=== PATIENT | male | born 1990 ===

== ENCOUNTER 2025-03-07 11:35 | Outpatient (AMB) | payer BC, MEDICAID, SELFPAY ==
--- NOTE | 2025-03-07 12:06 | MHC.OFFVIS ---
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 He was doing ok, no new issues. He has lost some weight. 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 Facial expression blinking were diminished. He was able to walk without assistance. Assessment & Plan Assessment & Plan (1) Seizure disorder: Comment: [place] [facility] [place]: mild bifrontal atrophy MRI brain [place] [facility] [place] cont in [place]: mild bifrontal atrophy CT brain [place] [facility] [place] in 2010: mild bifrontal atrophy. 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 Frontal lobe syndrome: At this time there was no active issues and medicines were providing coverage for most of the symptoms. As far as is sleep issue is concerned, I would suggest lead him sleep whenever he likes to as using a medicine to adjust his sleep might not work Medications: New topiramate 200 mg PO BID 180 tabs 1RF Coding Level of Care Code Est Pt Level 4 (01572) Diagnoses Seizure disorder G40.909 Frontal lobe syndrome F07.0
--- OUTSIDE RECORDS SUMMARY | 2025-03-07 12:29 | XMS_ITS | Clinical Summary ---
Author Organization [facility] Address [address] [place] [address] Care Team Providers Care Pig Handler Name Role Phone Ayush Zazueta MD Primary Care Provider [phone] Allergies No known active allergies Medications Medication Sig Dispensed Refills Start Date End Date Status Melatonin 10 MG TABS Take 1 tablet by mouth every night at bedtime as needed. 0 Active guaiFENesin (ROBITUSSIN) 100 MG/5ML SOLN oral solution Take 5 mL by mouth every 6 (six) hours as needed. 0 Active Acetaminophen Extra Strength 500 MG TABS Take 1 tablet by mouth every 6 (six) hours as needed (headache, fever). 0 Active QUEtiapine (SEROquel) 100 MG tablet Take 1 tablet (100 mg total) by mouth daily. 0 Active topiramate (TOPAMAX) 200 MG tablet Take 1 tablet (200 mg total) by mouth 2 (two) times a day. 0 Active risperiDONE (RisperDAL) 4 MG tablet Take 1 tablet (4 mg total) by mouth 3 (three) times a day. 0 Active traZODone (DESYREL) 100 MG tablet Take 1 tablet (100 mg total) by mouth every night at bedtime. 0 Active LORazepam (ATIVAN) 1 MG tablet Take 1 tablet (1 mg total) by mouth every 6 (six) hours as needed. 0 Active LORazepam (ATIVAN) 0.5 MG tablet Take 1 tablet (0.5 mg total) by mouth every 6 (six) hours as needed. 0 Active Social History Tobacco Use Types Packs/Day Years Used Date Smoking Tobacco: Never Smokeless Tobacco: Never Tobacco Cessation:Counseling Given: Not Answered Alcohol Use Standard Drinks/Week Comments Never 0 (1 standard drink = 0.6 oz pur e alcohol) Sex and Gender Information Value Date Recorded Sex Assigned at Not on file Gender Identity Not on file Sexual Orientation Not on file Job Start Date Occupation Industry Not on file Not on file Not on file Last Filed Vital Signs Vital Sign Reading Time Taken Comments Blood Pressure - - Pulse 81 09/17/2023 11:27 AM EST Temperature 36.9 C (98.4 F) 09/17/2023 11:27 AM EST Respiratory Rate - - Oxygen Saturation 100% 09/17/2023 11: 27 AM EST Inhaled Oxygen Concentration - - Weight 107.3 kg (236 lb 9.6 oz) 024 11:27 AM EST Height - - Body Mass Index - - Plan of Treatment Health Maintenance Due Date Last Done Comments Hepatitis B Vaccines (1 of 3 - 3-dose series) 1990 Hepatitis C Screening 1990 COVID-19 Vaccine (#1) 06/30/1991 Depression Screening 2002 Preventative Health Evaluation 2008 DTap / Tdap / Td (2 - Td or Tdap) 12/28/2024 015 Influenza Vaccine (Season Ended) 2025 Pneumococcal Vaccine Aged Out No long er eligible based on patient's age to complete this topic RSV Ped < 20 months Aged Out No longe r eligible based on patient's age to complete this topic Care Teams Pig Handler Relationship Specialty Start Date End Date Ayush Zazueta MD PCP - General Internal Medicine 06/13/23
--- OUTSIDE RECORDS SUMMARY | 2025-03-07 12:29 | XMS_ITS | Clinical Summary ---
Author Organization [address] Building Address [address] [place] [phone] Phone Care Team Providers Care Instruction Librarian Name Role Phone Ayush Zazueta MD Primary Care Provider [phone] Allergies No known active allergies Medications guaiFENesin (ROBITUSSIN) 100 mg/5 mL liquid Take 5 mL (100 mg total) by mouth. 4 Active acetaminophen (TYLENOL) 500 mg tablet Take 1 tablet (500 mg total) by mouth. 4 Active LORazepam (ATIVAN) 0.5 mg tablet Take 1 tablet (0.5 mg total) by mouth every 6 hours as needed. Active LORazepam (ATIVAN) 1 mg tablet Take 1 tablet (1 mg total) by mouth 2 (two) times a day if needed for anxiety. Active topiramate (TOPAMAX) 200 mg tablet Take 1 tablet (200 mg total) by mouth 2 (two) times a day. Active risperiDONE (RisperDAL) 4 mg tablet Take 1 tablet (4 mg total) by mouth 3 (three) times a day. Active melatonin 5 mg tablet Take 3 tablets (15 mg total) by mouth at bedtime. Active risperiDONE (RisperDAL) 1 mg tablet Take 1 tablet (1 mg total) by mouth 2 (two) times a day. Active QUEtiapine (SEROquel) 400 mg tablet Take 1 tablet (400 mg total) by mouth at bedtime. Active traZODone (DESYREL) 100 mg tablet Take 2 tablets (200 mg total) by mouth at bedtime. Active ammonium lactate (AmLactin) 12 % lotion Apply topically 2 (two) times a day. Affected area specifically around the plantar heels and forefoot. Use in the a.m. and p.m. 400 g 2 5 12/15/19 Active ammonium lactate (AmLactin) 12 % lotion Apply topically if needed for dry skin. 400 g 2 5 02/10/20 Active Active Problems Problem Noted Date Diagnosed Date Acute cough 05/13/2024 Arthralgia 05/13/2024 Cerebral palsy [place] [place] [facility] [place]28[place] 2011 Development delay 12/26/2011 Frontal lobe dementia ([facility] [place], [facility] V28) 12/26/2011 Seizure ([facility] [place], [facility] [place]28) 12/26/2011 Overview (08/24/2024): Dr olson Encounters Date Type Department Care Team Description 02/24/2025 Telephone Internal Medicine - [address] [phone] Ayush Zazueta MD faxed order ([employer]) 02/09/2025 10:15 AM EDT Office Visit Orthopedic Surgery [facility] [address] [place] [phone] Paras Gomez DPM Pain in both feet (Primary Dx); Metatarsalgia of right foot; Callus of heel 02/09/2025 Telephone Orthopedic Surgery [facility] [address] [phone] Paras Gomez DPM 01/14/2025 11:30 AM EDT Office Visit Internal Medicine - [address] [phone] Ayush Zazueta MD Adult general medical examination (Primary Dx); Screening for deficiency anemia; Screening for hyperlipidemia; Screening for diabetes mellitus; Screening for thyroid disorder; Immunization due 12/30/2024 11:00 AM EDT Procedure visit Orthopedic Surgery [facility] [address] [phone] Paras Gomez DPM Cellulitis of left foot (Primary Dx); Cellulitis of right foot; Ingrown toenail 12/30/2024 Telephone Internal Medicine - [address] [phone] Ayush Zazueta MD information needed/referral,angélica rs 12/30/2024 Telephone Orthopedic Surgery [place] [phone] [phone] Paras Gomez DPM 12/14/2024 2:30 PM EDT Consult Orthopedic Surgery [place] [phone] [phone] Paras Gomez DPM Equinus contracture of left ankle (Primary Dx); Metatarsalgia of right foot; Callus of heel; Ingrown toenail from Last 3 Months Immunizations Name Administration Dates Next Due PPD Test 08/28/2015 Tdap Tetanus diptheria acell ular pertussis (Boostrix; Adacel) 7yo and older 01/14/2025,12/28/2014 Surgical History Surgery Date Site/Laterality Comments OTHER SURGICAL HISTORY PROCEDURE: DENIES PREVIOUS SURGERY Family History Medical History Relation Name Comments Diabetes Father Hypertension Father Other: hyperlipidemia Father Coronary artery disease Mother Heart attack Mother Relation Name Status Comments Brother Alive Father Alive Mother Alive Social History Tobacco Use Types Packs/Day Years Used Date Smoking Tobacco: Never Smokeless Tobacco: Never Tobacco Cessation:Counseling Given: Not Answered Alcohol Use Standard Drinks/Week Comments No 0 (1 standard drink = 0.6 oz pur e alcohol) Sex and Gender Information Value Date Recorded Sex Assigned at Not on file Legal Sex Male 11:34 AM EST Gender Identity Not on file Sexual Orientation Not on file Obstetrics History Last Filed Vital Signs Vital Sign Reading Time Taken Comments Blood Pressure 126/83 01/14/2025 10:55 AM EDT Pulse 77 01/14/2025 10:55 AM EDT Temperature - - Respiratory Rate - - Oxygen Saturation - - Inhaled Oxygen Concentration - - Weight 108 kg (237 lb) 02/09/2025 10:22 AM EDT Height 172.7 cm (5' 7.99 ) 02/09/2025 10:22 AM E DT Body Mass Index 36.04 02/09/2025 10:22 AM EDT Plan of Treatment Upcoming Encounters Date Type Department Care Team (Late st Contact Info) Description 05/25/2025 12:30 PM EDT Office Visit Internal Medicine - [address] [phone] Ayush Zazueta MD [address] [place] [phone] Health Maintenance Due Date Last Done Comments Depression Screening 07/30/2022 HIV Screening 07/30/2022 Hepatitis C Screening 07/30/2022 Social Influencers of Health Screening 07/30/2022 COVID-19 Vaccine ( season) 2024 09/06/2021, 11/03/2020, 10/06/2020 Influenza Vaccine (#1) 2025 08/03/2021 Cholesterol Screening (Lipid Panel) 01/17/2030 01/17/2025, 05/24/2024, 05/24/2024 DTaP,Tdap,and Td Vaccines (8 - Td or Tdap) 01/14/2035 01/14/2025, 12/28/2014, 07/03/2009, Additional history exists IPV Vaccines Completed 02/29/1996, 01/01, 01/27/1993, Additional history exists MMR Vaccines Completed 10/11/1996, 02/29/1992 HIB Vaccines Aged Out 11/23/1998 No longer eligi ble based on patient's age to complete this topic Hepatitis B Vaccines Completed 05/18/2002, 10/23/2001, 04/06/2001 Varicella Vaccines Completed 07/03/2009, 11/23/1998 HPV Vaccines Aged Out No longer eligi ble based on patient's age to complete this topic Hepatitis A Vaccines Aged Out No long er eligible based on patient's age to complete this topic Meningococcal ACWY Vaccine Aged Out N o longer eligible based on patient's age to complete this topic Meningococcal B Vaccine Aged Out No l onger eligible based on patient's age to complete this topic Pneumococcal Vaccine: Pediatrics (0 to 5 Years) and At-Risk Patients (6 to 64 Years) Aged Out No longer eligible based on patient's age to complete this topic RSV Immunization Patients Under 20 months Aged Out No longer eligible based on patient's age to complete this topic Procedures Procedure Name Priority Date/Time Associated Diagnosis Comments COMPLETE BLOOD COUNT Routine 01/17/2025 9:07 AM EDT Screening for deficiency anemia COMPREHENSIVE METABOLIC PANEL Routine 01/17/2025 9:07 AM EDT Screening for diabetes mellitus LIPID PANEL WITH REFLEX TO DIRECT LDL Routine 01/17/2025 9:07 AM EDT Screening for hyperlipidemia THYROID STIMULATING HORMONE WITH REFLEX TO FREE T4 AND FREE T3 Routine 01/17/2025 9:07 AM EDT Screening for thyroid disorder from Last 3 Months Results * Thyroid stimulating hormone with reflex to free t4 and free t3 (01/17/2025 9:07 AM EDT) TSH 0.62 0.40 - 4.00 mcIU/mL LAB CHEMISTRY METHOD 01/17/2025 4:30 PM EDT [facility] Blood Venous blood specimen / Unknown Venipuncture / Unknown 01/17/2025 9:07 AM EDT 01/17/2025 9:07 AM EDT us Ayush Zazueta MD LAB BLOOD ORDERABLES Final Res ult [facility] [address] [place] [address], [place] [phone] * (ABNORMAL) Lipid panel with reflex to direct LDL (01/17/2025 9:07 AM EDT) Cholesterol 177 0 - 200 mg/dL LAB CHEMISTRY METHOD 01/17/2025 2:47 PM EDT [facility] Triglycerides 126 0 - 150 mg/dL LAB CHEMISTRY METHOD 01/17/2025 2:47 PM EDT [facility] HDL 41 >=40 mg/dL LAB CHEMISTRY METHOD 01/17/2025 2:47 PM EDT [facility] LDL Calculated 111(H) 0 - 100 mg/dL LAB CHEMISTRY METHOD 01/17/2025 2:47 PM EDT [facility] VLDL Cholesterol Faustino 25.2 mg/dL LAB CHEMISTRY METHOD 01/17/2025 2:47 PM EDT [facility] Non HDL Chol. (LDL+VLDL) 136 <145 mg/dL LAB CHEMISTRY METHOD 01/17/2025 2:47 PM EDT [facility] Chol/HDL Ratio 4.3 0.0 - 4.4 LAB CHEMISTRY METHOD 01/17/2025 2:47 PM EDT [facility] Blood Venous blood specimen / Unknown Venipuncture / Unknown 01/17/2025 9:07 AM EDT 01/17/2025 9:07 AM EDT us Ayush Zazueta MD LAB BLOOD ORDERABLES Final Res ult [facility] [address] [place] [address], * (ABNORMAL) Complete blood count (01/17/2025 9:07 AM EDT) WBC 7.5 4.8 - 10.8 K/[facility] LAB HEMETOLOGY METHOD 01/17/2025 11:10 AM T [facility] RBC 4.70 4.50 - 5.50 M/[facility] LAB HEMETOLOGY METHOD 01/17/2025 11:10 AM T [facility] Hemoglobin 13.7 13.5 - 17.5 g/dL LAB HEMETOLOGY METHOD 01/17/2025 11:10 AM [facility] Hematocrit 42.5 42.0 - 54.0 % LAB HEMETOLOGY METHOD 01/17/2025 11:10 AM EDT [facility] MCV 90.8 79.0 - 98.0 FL LAB HEMETOLOGY METHOD 01/17/2025 11:10 AM EDT [facility] MCH 29.3 27.0 - 32.0 pcg LAB HEMETOLOGY METHOD 01/17/2025 11:10 AM EDT [facility] MCHC 32.2 32.0 - 37.0 g/dL LAB HEMETOLOGY METHOD 01/17/2025 11:10 AM EDT [facility] RDW 12.7 11.0 - 15.0 % LAB HEMETOLOGY METHOD 01/17/2025 11:10 AM EDT [facility] Platelets 194 130 - 400 K/mcL LAB HEMETOLOGY METHOD 01/17/2025 11:10 AM EDT [facility] MPV 11.8(H) 7.0 - 11.0 FL LAB HEMETOLOGY METHOD 01/17/2025 11:10 AM EDT [facility] NRBC 0.0 <1.0 % LAB HEMETOLOGY METHOD 01/17/2025 11:10 AM EDT [facility] NRBC Absolute 0.00 <0.10 K/mcL LAB HEMETOLOGY METHOD 01/17/2025 11:10 AM [facility] Blood Venous blood specimen / Unknown Venipuncture / Unknown 01/17/2025 9:07 AM EDT 01/17/2025 9:07 AM EDT us Ayush Zazueta MD LAB BLOOD ORDERABLES Final Res ult [facility] [address] [place] [address], * Comprehensive metabolic panel (01/17/2025 9:07 AM EDT) Sodium 143 133 - 145 mmol/L LAB CHEMISTRY METHOD 01/17/2025 2:47 PM [facility] Potassium 3.7 3.5 - 5.5 mmol/L LAB CHEMISTRY METHOD 01/17/2025 2:47 PM [facility] Chloride 110 96 - 110 mmol/L LAB CHEMISTRY METHOD 01/17/2025 2:47 PM [facility] CO2 23 21 - 32 mmol/L LAB CHEMISTRY METHOD 01/17/2025 2:47 PM [facility] Anion Gap 10 3 - 11 LAB CHEMISTRY METHOD 01/17/2025 2:47 PM [facility] Glucose 100 70 - 100 mg/dL LAB CHEMISTRY METHOD 01/17/2025 2:47 PM [facility] BUN 13 5 - 25 mg/dL LAB CHEMISTRY METHOD 01/17/2025 2:47 PM [facility] Creatinine 1.02 0.70 - 1.30 mg/dL LAB CHEMISTRY METHOD 01/17/2025 2:47 PM [facility] eGFR 99 >=60 mL/min/1. 73m2 LAB CHEMISTRY METHOD 01/17/2025 2:47 PM [facility] Comment:Calculation based on the Chronic Kidney Disease Epidemiology Collaboration (CKD-EPI) equation refit without adjustment for race. BUN/Creatinine Ratio 12.7 LAB CHEMISTRY METHOD 01/17/2025 2:47 PM [facility] Calcium 9.0 8.5 - 10.5 mg/dL LAB CHEMISTRY METHOD 01/17/2025 2:47 PM [facility] AST (SGOT) 12 10 - 42 unit/L LAB CHEMISTRY METHOD 01/17/2025 2:47 PM [facility] ALT (SGPT) 24 10 - 60 unit/L LAB CHEMISTRY METHOD 01/17/2025 2:47 PM [facility] Alkaline Phosphatase 102 42 - 121 unit/L LAB CHEMISTRY METHOD 01/17/2025 2:47 PM [facility] Total Protein 7.2 6.0 - 8.0 g/dL LAB CHEMISTRY METHOD 01/17/2025 2:47 PM EDT [facility] Albumin 4.0 3.2 - 5.0 g/dL LAB CHEMISTRY METHOD 01/17/2025 2:47 PM EDT [facility] Total Bilirubin 0.3 0.0 - 1.4 mg/dL LAB CHEMISTRY METHOD 01/17/2025 2:47 PM EDT [facility] Blood Venous blood specimen / Unknown Venipuncture / Unknown 01/17/2025 9:07 AM EDT 01/17/2025 9:07 AM EDT Ayush Zazueta MD LAB BLOOD ORDERABLES Final Res ult [facility] [address] [place] [address], from Last 3 Months Insurance [facility] MEDICAID - [place] Care Teams Instruction Librarian Relationship Specialty Start Date End Date Ayush Zazueta MD [address] [place] [phone] PCP - General Internal Medicine 08/31/24
== END 2025-03-07 12:15 | disposition home or self-care (01) ==
LOC: HO.HSM 11:35
PROVIDERS: PCP Internal Medicine; Visit Provider Psychiatry & Neurology Neurology
DX: G40.909 Epilepsy, unspecified, not intractable, without status epilepticus (principal); F07.0 Personality change due to known physiological condition
CPT/HCPCS: 99214